=== PATIENT | female | born 1970 | race Hispanic/Latino ===

== ENCOUNTER 2020-08-24 01:53 | Inpatient (IN) | payer BC ==
[~2020-08-24] VITALS: Ht 149.9 cm; Wt 64.2 kg
[2020-08-24 02:26] LABS: BASOPHILS % (AUTO) 0.3 % (0.0-5.0); EOSINOPHILS % (AUTO) 0.2 % (0.0-8.0); HEMATOCRIT 41.6 % (36-48); LYMPHOCYTES % (AUTO) 9.8 % (21.0-51.0); MEAN CORPUSCULAR HEMOGLOBIN 30.4 pg (27.0-33.0); MEAN CORPUSCULAR HGB CONC 34.6 g/dL (32.0-36.0); MEAN CORPUSCULAR VOLUME 87.9 fL (79-99); MONOCYTES % (AUTO) 3.6 % (3.0-13.0); NEUTROPHILS % (AUTO) 85.7 % (40.0-77.0); PLATELET COUNT (AUTO) 221 K/uL (130-400); RED BLOOD CELL COUNT(AUTO) 4.73 MIL/uL (4.00-5.50); RED CELL DISTRIBUTION WIDTH 13.3 % (11.0-15.5); WHITE BLOOD COUNT (AUTO) 11.3 K/uL (4.8-10.8)
[2020-08-24 02:32] LABS: APPEARANCE,URINE Cloudy (CLEAR); BILIRUBIN,URINE Large (NEGATIVE); COLOR,URINE Dark Yellow (YELLOW); GLUCOSE, URINE (UA) Negative (NEGATIVE); KETONES,URINE Trace mg/dL (NEGATIVE); LEUKOCYTE ESTERASE ,URINE Small (NEGATIVE); NITRATE,URINE Negative (NEGATIVE); OCCULT BLOOD,URINE Small (NEGATIVE); PROTEIN,URINE POS 1+ mg/dL (NEGATIVE)
[2020-08-24] MEDS ORDERED: ONDANSETRON 4MG INJ ONE ×2 (02:33→11:18)
[2020-08-24] MEDS ORDERED: MORPHINE 4 MG SYG ONE ×3 (02:33→04:55)
[2020-08-24] MEDS ORDERED: FAMOTIDINE 20MG VIAL IV ONE ×2 (02:34→10:18)
[2020-08-24 02:35] LABS: CREATININE 0.7 mg/dL (0.5-1.5); POTASSIUM 3.6 mmol/L (3.5-5.1)
[2020-08-24 02:42] LABS: BACTERIA,URINE Few /HPF (None Seen); MUCUS,URINE Few LPF (None Seen)
[2020-08-24 02:43] LABS: HYALINE CASTS, URINE 0-1 /LPF (0-1 /LPF)
[2020-08-24 02:52] LABS: ALBUMIN 3.6 g/dL (3.5-5.0); BILIRUBIN,TOTAL 3.3 mg/dL (0.2-1.0); TOTAL PROTEIN, SERUM 7.1 g/dL (6.0-8.3)
[2020-08-24] MEDS ORDERED: 0.9%NACL 1000ML 1,000 ML IV ONE (03:15)
[2020-08-24] MEDS ORDERED: IOHEXOL 350 MG/ML 100ML INFUS..BTL IV ONE (03:33)
[2020-08-24] MEDS ORDERED: MORPHINE 2 MG SYG IM PRN (05:45)
[2020-08-24] MEDS ORDERED: 0.9%NACL 1000ML 1,000 ML IV SCH ×2 (06:00→07:45)
[2020-08-24 06:04] LABS: CHOLESTEROL 246 mg/dL (<200); LDL DIRECT 117 mg/dL (0-99); TRIGLYCERIDES 411 mg/dL (30-200)
[2020-08-24 06:09] LABS: HEMOGLOBIN A1C 5.2 % (4.0-6.0)
[2020-08-24 06:15] LABS: HDL CHOLESTEROL 22 mg/dL (35-85)
[2020-08-24] MEDS ORDERED: ONDANSETRON 4MG INJ IVP PRN (07:45)
[2020-08-24] MEDS ORDERED: HYDROMORPHONE HCL 2 MG TAB PO PRN (07:45)
[2020-08-24] MEDS ORDERED: GLUCAGON 1MG KIT 1 MG ML IM PRN (07:45)
[2020-08-24] MEDS ORDERED: DEXTROSE 50%-WATER 50 ML DISP.SYRIN IV PRN (07:45)
[2020-08-24] MEDS ORDERED: HYDROMORPHONE 1 MG INJ IVP PRN (07:45)
[2020-08-24 08:35] LABS: AMPHET/METH SCREEN,URINE NEGATIVE (NEGATIVE); BARBITURATE SCREEN, URINE NEGATIVE (NEGATIVE); BENZODIAZEPINES SCREEN,URINE NEGATIVE (NEGATIVE); CANNABINOID SCREEN,URINE NEGATIVE (NEGATIVE); COCAINE SCREEN,URINE NEGATIVE (NEGATIVE); OPIATE SCREEN,URINE NEGATIVE (NEGATIVE); PHENCYCLIDINE SCREEN,URINE NEGATIVE (NEGATIVE)
[2020-08-24] MEDS: ENOXAPARIN SODIUM 30 MG/0.3 ML SQ SCH (09:00)
[2020-08-24 09:26] LABS: INR 0.96 (0.85-1.15); PROTHROMBIN TIME 10.5 SEC (9.6-11.6)
[2020-08-24 09:27] LABS: PARTIAL THROMBOPLASTIN TIME 23.9 SEC (26.3-35.5)
[2020-08-24 09:52] LABS: ALBUMIN 3.1 g/dL (3.5-5.0); ASPARTATE AMINOTRANSFERASE 471 U/L (10-37); BILIRUBIN,DIRECT 0.5 mg/dL (0.0-0.3); BILIRUBIN,TOTAL 2.1 mg/dL (0.2-1.0); TOTAL PROTEIN, SERUM 6.7 g/dL (6.0-8.3)
[2020-08-24 09:54] LABS: ACETAMINOPHEN < 1 mcg/mL (10-30); SALICYLATE < 2.8 mg/dL (2.8-20.0)
[2020-08-24 09:55] LABS: ALANINE AMINOTRANSFERASE 1037 U/L (12-78)
[2020-08-24] MEDS ORDERED: ENOXAPARIN SODIUM 30 MG/0.3 ML SQ ONE (10:17)
[2020-08-24] MEDS ORDERED: KETOROLAC 15MG/ML VIAL (15MG/ML) IV PRN (10:45)
[2020-08-24] MEDS ORDERED: LACTATED RINGERS 1000ML 1,000 ML IV ONE (11:18)
[2020-08-24 11:28] VITALS: BP 133/79
[2020-08-24] MEDS ORDERED: BIOTIN PO (11:28)
[2020-08-24] MEDS ORDERED: MULT-1296 PO (11:28)
[2020-08-24] MEDS: INSULIN HUMULIN R 100 UNIT/ML 3ML SQ SCH ×3 (11:30→21:00)
[2020-08-24] MEDS ORDERED: HYDROMORPHONE HCL 2 MG TAB ONE (14:33)
[2020-08-24] MEDS ORDERED: ZOSYN 3.375GM+NS 50ML 50 ML IV ONE (15:11)
[2020-08-24 16:05] VITALS: BP 152/88
[2020-08-24] MEDS: LACTATED RINGERS 1000ML 1,000 ML IV SCH ×2 (18:45→21:24)
[2020-08-24] MEDS: HYDROMORPHONE HCL 2 MG TAB PO PRN ×2 (18:48→23:24)
[2020-08-24 19:04] VITALS: BP 145/82
[2020-08-24] MEDS: FAMOTIDINE 20MG VIAL IV SCH (20:56)
[2020-08-24] MEDS: ZOSYN 3.375GM+NS 50ML 50 ML IV SCH (20:56)
[2020-08-24 23:13] VITALS: BP 141/78
[2020-08-25] MEDS: LACTATED RINGERS 1000ML 1,000 ML IV SCH (02:45)
[2020-08-25 03:41] VITALS: BP 136/79
[2020-08-25] MEDS: HYDROMORPHONE HCL 2 MG TAB PO PRN ×3 (03:53→16:01)
[2020-08-25 05:02] LABS: BASOPHILS % (AUTO) 0.4 % (0.0-5.0); EOSINOPHILS % (AUTO) 0.6 % (0.0-8.0); HEMATOCRIT 35.6 % (36-48); MEAN CORPUSCULAR HGB CONC 33.4 g/dL (32.0-36.0); MEAN CORPUSCULAR VOLUME 89.7 fL (79-99); MONOCYTES % (AUTO) 5.5 % (3.0-13.0); NEUTROPHILS % (AUTO) 76.1 % (40.0-77.0); PLATELET COUNT (AUTO) 201 K/uL (130-400); RED BLOOD CELL COUNT(AUTO) 3.97 MIL/uL (4.00-5.50); RED CELL DISTRIBUTION WIDTH 13.4 % (11.0-15.5); WHITE BLOOD COUNT (AUTO) 13.6 K/uL (4.8-10.8)
[2020-08-25] MEDS: ZOSYN 3.375GM+NS 50ML 50 ML IV SCH ×3 (05:22→22:00)
[2020-08-25 05:43] LABS: ALBUMIN 2.7 g/dL (3.5-5.0); BILIRUBIN,DIRECT 0.3 mg/dL (0.0-0.3); BILIRUBIN,TOTAL 1.3 mg/dL (0.2-1.0); CREATININE 0.6 mg/dL (0.5-1.5); TOTAL PROTEIN, SERUM 6.2 g/dL (6.0-8.3)
[2020-08-25] MEDS: INSULIN HUMULIN R 100 UNIT/ML 3ML SQ SCH ×4 (05:48→20:46)
[2020-08-25] MEDS ORDERED: POTASSIUM CHLORIDE 20 MEQ/100 ML BAG IV SCH (06:00)
[2020-08-25] MEDS: POTASSIUM CHLORIDE 20MEQ/100ML 100 ML IV ONE ×2 (06:08→06:39)
[2020-08-25 08:51] VITALS: BP 134/75
[2020-08-25] MEDS: ENOXAPARIN SODIUM 30 MG/0.3 ML SQ SCH (11:13)
[2020-08-25] MEDS: FAMOTIDINE 20MG VIAL IV SCH ×2 (11:13→20:22)
[2020-08-25 11:41] VITALS: BP 142/87
[2020-08-25] MEDS: POTASSIUM CHLORIDE 20MEQ/100ML 100 ML IV PRN (11:42)
[2020-08-25] MEDS: LIDOCAINE HCL-MPF 1% 2ML VIAL IV PRN (11:42)
[2020-08-25 16:30] VITALS: BP 134/83
[2020-08-25 20:04] VITALS: BP 134/72
[2020-08-25] MEDS: MORPHINE 4 MG SYG IV PRN (20:23)
[2020-08-25 23:47] VITALS: BP 120/65
[2020-08-26] VITALS (7 sets, daily range): BP systolic 120–139; BP diastolic 65–83
[2020-08-26] MEDS: MORPHINE 4 MG SYG IV PRN ×3 (03:51→21:26)
[2020-08-26 05:28] LABS: BASOPHILS % (AUTO) 0.4 % (0.0-5.0); EOSINOPHILS % (AUTO) 0.4 % (0.0-8.0); HEMATOCRIT 35.1 % (36-48); LYMPHOCYTES % (AUTO) 11.9 % (21.0-51.0); MEAN CORPUSCULAR HGB CONC 33.3 g/dL (32.0-36.0); MONOCYTES % (AUTO) 6.3 % (3.0-13.0); NEUTROPHILS % (AUTO) 80.3 % (40.0-77.0); PLATELET COUNT (AUTO) 202 K/uL (130-400); RED CELL DISTRIBUTION WIDTH 13.1 % (11.0-15.5); WHITE BLOOD COUNT (AUTO) 16.6 K/uL (4.8-10.8)
[2020-08-26] MEDS: INSULIN HUMULIN R 100 UNIT/ML 3ML SQ SCH ×4 (05:44→21:00)
[2020-08-26] MEDS: ZOSYN 3.375GM+NS 50ML 50 ML IV SCH ×3 (05:44→21:15)
[2020-08-26 05:45] LABS: ALBUMIN 2.7 g/dL (3.5-5.0); BILIRUBIN,TOTAL 1.2 mg/dL (0.2-1.0); CREATININE 0.7 mg/dL (0.5-1.5); POTASSIUM 3.5 mmol/L (3.5-5.1); TOTAL PROTEIN, SERUM 6.5 g/dL (6.0-8.3)
[2020-08-26] MEDS: FAMOTIDINE 20MG VIAL IV SCH ×2 (07:46→21:15)
[2020-08-26] MEDS: ENOXAPARIN SODIUM 30 MG/0.3 ML SQ SCH (07:47)
[2020-08-26] MEDS: POTASSIUM CHLORIDE 20MEQ/100ML 100 ML IV PRN (07:48)
[2020-08-26] MEDS: LIDOCAINE HCL-MPF 1% 2ML VIAL IV PRN (07:55)
[2020-08-26] MEDS: 0.9%NACL 1000ML 1,000 ML IV SCH ×4 (08:15→19:25)
[2020-08-26 09:13] LABS: HEPATITIS B CORE IGM Negative (Negative); HEPATITIS Bs ANTIGEN SCREEN P Negative (Negative)
[2020-08-26] MEDS ORDERED: LOPERAMIDE HCL 2 MG CAP PO SCH (19:25)
[2020-08-27] MEDS: 0.9%NACL 1000ML 1,000 ML IV SCH ×5 (04:15→20:04)
[2020-08-27 05:44] LABS: BASOPHILS % (AUTO) 0.5 % (0.0-5.0); EOSINOPHILS % (AUTO) 1.9 % (0.0-8.0); HEMATOCRIT 31.7 % (36-48); LYMPHOCYTES % (AUTO) 17.8 % (21.0-51.0); MEAN CORPUSCULAR HEMOGLOBIN 30.6 pg (27.0-33.0); MEAN CORPUSCULAR HGB CONC 34.4 g/dL (32.0-36.0); NEUTROPHILS % (AUTO) 69.9 % (40.0-77.0); PLATELET COUNT (AUTO) 190 K/uL (130-400); RED BLOOD CELL COUNT(AUTO) 3.56 MIL/uL (4.00-5.50); RED CELL DISTRIBUTION WIDTH 13.1 % (11.0-15.5); WHITE BLOOD COUNT (AUTO) 10.3 K/uL (4.8-10.8)
[2020-08-27] MEDS: ZOSYN 3.375GM+NS 50ML 50 ML IV SCH ×3 (05:50→20:04)
[2020-08-27] MEDS: MORPHINE 4 MG SYG IV PRN ×4 (05:51→22:32)
[2020-08-27 06:09] LABS: ALBUMIN 2.4 g/dL (3.5-5.0); BILIRUBIN,TOTAL 0.8 mg/dL (0.2-1.0); CREATININE 0.7 mg/dL (0.5-1.5); TOTAL PROTEIN, SERUM 6.2 g/dL (6.0-8.3)
[2020-08-27 06:51] VITALS: BP 127/76
[2020-08-27] MEDS: INSULIN HUMULIN R 100 UNIT/ML 3ML SQ SCH ×4 (06:57→21:00)
[2020-08-27] MEDS: LIDOCAINE HCL-MPF 1% 2ML VIAL IV PRN ×2 (06:57→08:38)
[2020-08-27] MEDS: POTASSIUM CHLORIDE 20MEQ/100ML 100 ML IV PRN ×2 (06:58→13:46)
[2020-08-27] MEDS: ENOXAPARIN SODIUM 30 MG/0.3 ML SQ SCH (09:39)
[2020-08-27] MEDS: FAMOTIDINE 20MG VIAL IV SCH ×2 (09:39→20:03)
[2020-08-27 12:00] VITALS: BP 145/83
[2020-08-27] MEDS ORDERED: KCL 20 MEQ ERTAB PO SCH (12:30)
[2020-08-27 16:00] VITALS: BP 141/79
[2020-08-27 20:00] VITALS: BP 125/75
[2020-08-28 00:12] VITALS: BP 131/71
[2020-08-28 03:41] LABS: BASOPHILS % (AUTO) 0.5 % (0.0-5.0); EOSINOPHILS % (AUTO) 2.8 % (0.0-8.0); HEMATOCRIT 31.2 % (36-48); LYMPHOCYTES % (AUTO) 26.4 % (21.0-51.0); MEAN CORPUSCULAR HEMOGLOBIN 30.5 pg (27.0-33.0); MEAN CORPUSCULAR VOLUME 89.9 fL (79-99); MONOCYTES % (AUTO) 8.9 % (3.0-13.0); NEUTROPHILS % (AUTO) 60.9 % (40.0-77.0); PLATELET COUNT (AUTO) 191 K/uL (130-400); RED BLOOD CELL COUNT(AUTO) 3.47 MIL/uL (4.00-5.50); RED CELL DISTRIBUTION WIDTH 13.1 % (11.0-15.5)
[2020-08-28 03:56] LABS: CREATININE 0.5 mg/dL (0.5-1.5); POTASSIUM 3.4 mmol/L (3.5-5.1)
[2020-08-28 04:12] VITALS: BP 135/67
[2020-08-28] MEDS: MORPHINE 4 MG SYG IV PRN ×4 (04:32→22:22)
[2020-08-28] MEDS: 0.9%NACL 1000ML 1,000 ML IV SCH ×5 (04:33→22:22)
[2020-08-28] MEDS: ZOSYN 3.375GM+NS 50ML 50 ML IV SCH ×3 (05:40→22:22)
[2020-08-28 07:00] VITALS: BP 135/81
[2020-08-28] MEDS: INSULIN HUMULIN R 100 UNIT/ML 3ML SQ SCH ×4 (07:30→21:00)
[2020-08-28 08:00] LABS: ALBUMIN 2.3 g/dL (3.5-5.0); BILIRUBIN,DIRECT 0.1 mg/dL (0.0-0.3); BILIRUBIN,TOTAL 0.4 mg/dL (0.2-1.0); TOTAL PROTEIN, SERUM 5.9 g/dL (6.0-8.3)
[2020-08-28] MEDS: FAMOTIDINE 20MG VIAL IV SCH ×2 (08:47→20:42)
[2020-08-28 11:00] VITALS: BP 144/78
[2020-08-28 15:00] VITALS: BP 143/79
[2020-08-28] MEDS: ENOXAPARIN SODIUM 30 MG/0.3 ML SQ SCH (16:35)
[2020-08-28] MEDS: POTASSIUM CHLORIDE 20MEQ/100ML 100 ML IV PRN (16:53)
[2020-08-28] MEDS: LIDOCAINE HCL-MPF 1% 2ML VIAL IV PRN (16:53)
[2020-08-28 19:36] VITALS: BP 139/80
[2020-08-29] VITALS (19 sets, daily range): BP systolic 125–154; BP diastolic 66–88
[2020-08-29 04:50] LABS: BASOPHILS % (AUTO) 0.7 % (0.0-5.0); EOSINOPHILS % (AUTO) 3.2 % (0.0-8.0); LYMPHOCYTES % (AUTO) 32.8 % (21.0-51.0); MEAN CORPUSCULAR HEMOGLOBIN 29.5 pg (27.0-33.0); MEAN CORPUSCULAR HGB CONC 32.4 g/dL (32.0-36.0); MEAN CORPUSCULAR VOLUME 91.2 fL (79-99); MONOCYTES % (AUTO) 8.6 % (3.0-13.0); PLATELET COUNT (AUTO) 237 K/uL (130-400); RED BLOOD CELL COUNT(AUTO) 3.73 MIL/uL (4.00-5.50); RED CELL DISTRIBUTION WIDTH 12.4 % (11.0-15.5); WHITE BLOOD COUNT (AUTO) 7.3 K/uL (4.8-10.8)
[2020-08-29 05:05] LABS: CREATININE 0.6 mg/dL (0.5-1.5); POTASSIUM 3.5 mmol/L (3.5-5.1)
[2020-08-29] MEDS: ZOSYN 3.375GM+NS 50ML 50 ML IV SCH ×3 (05:23→20:08)
[2020-08-29] MEDS: INSULIN HUMULIN R 100 UNIT/ML 3ML SQ SCH ×4 (06:30→20:32)
[2020-08-29] MEDS: POTASSIUM CHLORIDE 20MEQ/100ML 100 ML IV PRN (06:32)
[2020-08-29] MEDS: LIDOCAINE HCL-MPF 1% 2ML VIAL IV PRN (06:32)
[2020-08-29] MEDS: FAMOTIDINE 20MG VIAL IV SCH ×2 (08:56→20:08)
[2020-08-29] MEDS: ENOXAPARIN SODIUM 30 MG/0.3 ML SQ SCH (09:00)
[2020-08-29] MEDS: 0.9%NACL 1000ML 1,000 ML IV SCH ×4 (13:47→18:29)
[2020-08-29] MEDS ORDERED: BUPIVACAINE/PF 0.5% 30ML VIAL ONE (15:37)
[2020-08-29] MEDS ORDERED: KETOROLAC 30MG VIAL (30MG/ML) ONE (17:05)
[2020-08-29] MEDS ORDERED: MEPERIDINE-PF 25 MG/ML SYG ONE (17:06)
[2020-08-29] MEDS ORDERED: ACETAMINOPHEN WITH CODEINE 1 TAB TAB PO PRN (18:45)
[2020-08-29] MEDS ORDERED: 0.9%NACL 1000ML 1,000 ML IV SCH (19:00)
[2020-08-29] MEDS: MORPHINE 4 MG SYG IV PRN (22:18)
[2020-08-30] VITALS: BP 140/52
[2020-08-30 04:00] VITALS: BP 118/68
[2020-08-30] MEDS: ZOSYN 3.375GM+NS 50ML 50 ML IV SCH (04:19)
[2020-08-30 04:21] LABS: BASOPHILS % (AUTO) 0.4 % (0.0-5.0); EOSINOPHILS % (AUTO) 2.2 % (0.0-8.0); HEMATOCRIT 31.8 % (36-48); LYMPHOCYTES % (AUTO) 26.3 % (21.0-51.0); MEAN CORPUSCULAR HEMOGLOBIN 30.6 pg (27.0-33.0); MEAN CORPUSCULAR HGB CONC 34.6 g/dL (32.0-36.0); MEAN CORPUSCULAR VOLUME 88.3 fL (79-99); MONOCYTES % (AUTO) 9.2 % (3.0-13.0); NEUTROPHILS % (AUTO) 61.3 % (40.0-77.0); PLATELET COUNT (AUTO) 272 K/uL (130-400); RED CELL DISTRIBUTION WIDTH 12.4 % (11.0-15.5); WHITE BLOOD COUNT (AUTO) 7.8 K/uL (4.8-10.8)
[2020-08-30] MEDS: MORPHINE 4 MG SYG IV PRN ×3 (04:25→15:57)
[2020-08-30 04:40] LABS: ALBUMIN 2.5 g/dL (3.5-5.0); BILIRUBIN,TOTAL 0.5 mg/dL (0.2-1.0); CREATININE 0.6 mg/dL (0.5-1.5); POTASSIUM 3.2 mmol/L (3.5-5.1); TOTAL PROTEIN, SERUM 6.3 g/dL (6.0-8.3)
[2020-08-30] MEDS: INSULIN HUMULIN R 100 UNIT/ML 3ML SQ SCH ×2 (06:50→11:30)
[2020-08-30 08:00] VITALS: BP 134/84
[2020-08-30] MEDS: FAMOTIDINE 20MG VIAL IV SCH (08:15)
[2020-08-30] MEDS: ENOXAPARIN SODIUM 30 MG/0.3 ML SQ SCH (08:15)
[2020-08-30] MEDS ORDERED: KCL 20 MEQ ERTAB PO SCH (09:15)
[2020-08-30 12:12] VITALS: BP 136/86
[2020-08-30 16:00] VITALS: BP 147/62
== END 2020-08-30 17:28 | disposition home or self-care (01) | DRG 418 ==
LOC: EDH 01:53 → OBSVTOIN 05:34 → EDHIP 05:34 → INTOOBSV 05:34 → 4DH 16:44
PROVIDERS: ADMIT Family Medicine; ATTEND Family Medicine
PROC: 0FT44ZZ Resection of Gallbladder, Percutaneous Endoscopic Approach (ICD-10-PCS; principal; 2020-08-29 16:08)
DX: K85.10 Biliary acute pancreatitis without necrosis or infection (principal); N39.0 Urinary tract infection, site not specified; K80.20 Calculus of gallbladder without cholecystitis without obstruction; E78.5 Hyperlipidemia, unspecified; E87.6 Hypokalemia; R74.01 Elevation of levels of liver transaminase levels; R73.9 Hyperglycemia, unspecified; Z90.710 Acquired absence of both cervix and uterus; R60.9 Edema, unspecified; R74.8 Abnormal levels of other serum enzymes; K82.8 Other specified diseases of gallbladder
CPT/HCPCS: 36415; 74177; 74181; 76705; 80048; 80053; 80061; 80074; 80076; 80305; 81001; 82150; 82550; 82948; 83036; 83690; 84132; 84484; 85025; 85610; 85730; 93005; G0378; G0481; J1650; J1885; J2175; J2270; J2405; J2543; J3480; J3490; J7030; J7120; Q9967

== ENCOUNTER 2021-10-15 20:12 | Emergency (ER) | payer BC ==
[~2021-10-15] VITALS: Ht 149.9 cm; Wt 55.3 kg
[~2021-10-15 20:12] MED LIST: BIOTIN PO; MULT-1296 PO
[2021-10-15 20:14] VITALS: BP 123/80
[2021-10-15 20:42] LABS: HEMATOCRIT 40.7 % (36-48); MEAN CORPUSCULAR HEMOGLOBIN 29.3 pg (27.0-33.0); MEAN CORPUSCULAR HGB CONC 33.2 g/dL (32.0-36.0); MEAN CORPUSCULAR VOLUME 88.5 fL (79-99); PLATELET COUNT (AUTO) 240 K/uL (130-400); RED CELL DISTRIBUTION WIDTH 12.3 % (11.0-15.5)
[2021-10-15 20:49] LABS: BASOPHILS % (AUTO) 0.8 % (0.0-5.0); EOSINOPHILS % (AUTO) 1.5 % (0.0-8.0); MONOCYTES % (AUTO) 7.5 % (3.0-13.0); NEUTROPHILS % (AUTO) 51.7 % (40.0-77.0)
[2021-10-15 22:06] LABS: CREATININE 0.6 mg/dL (0.5-1.5); POTASSIUM 4.1 mmol/L (3.5-5.1)
[2021-10-15 22:10] LABS: ALBUMIN 3.6 g/dL (3.5-5.0); BILIRUBIN,TOTAL 0.8 mg/dL (0.2-1.0); TOTAL PROTEIN, SERUM 7.1 g/dL (6.0-8.3)
== END 2021-10-15 23:40 | disposition home or self-care (01) ==
LOC: EDH 20:12
DX: R07.89 Other chest pain (principal); E78.00 Pure hypercholesterolemia, unspecified; Z90.49 Acquired absence of other specified parts of digestive tract; Z98.890 Other specified postprocedural states
CPT/HCPCS: 36415; 71045; 80053; 84484; 85025; 85378; 93005